=== PATIENT | male | born 1975 | race Caucasian/White ===

== ENCOUNTER 2018-03-31 13:19 | Emergency (ER) | payer SELFPAY ==
[2018-03-31 13:34] VITALS: BP 137/80
--- NOTE | 2018-03-31 13:49 | ED Physician Documentation ---
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 History: history of chronic pain: (sig lesser), back pain Duration: continues in ED, worse Recent Injury: No Context: lifting Where: work Other Injuries: back Severity: moderate Quality: burning, sharp, similar- prior back pain (butworse) Associated Symptoms: denies: fever, chills, sweating, constipation, incontinence , nausea, vomiting Worsened By:: other (lifting and flexing) - ROS CONST: no problems CVS/RESP: none EYES/ENT: none MS/SKIN/LYMPH: none Neuro/Psych: none GI/: denies: abdominal pain - PAST HX Past History: back pain (intermittent but freq recurrent-pt has had no studies done-disc w/ him he prefers not since he has no insurance- bowels and kidneys are as usual) Surgeries/Procedures: none Allergies/Adverse Reactions: Allergies Allergy/AdvReac Type Severity Reaction Status Date / Time No Known Allergies Allergy Verified 03/31/18 13:34 Home Medications: Ambulatory Orders Medication Instructions Recorded NK [NK] 03/31/18 - SOCIAL HX Smoking History: less than 1 pack/day Alcohol Use: none Drug Use: none - FAMILY HX Family History: no significant history - VITAL SIGNS Vital Signs: Vital Signs Temp Pulse Resp BP Pulse Ox 98.6 F 70 16 137/80 98 03/31/18 13:29 03/31/18 13:29 03/31/18 13:29 03/31/18 13:29 03/31/18 13:29 - REVIEWED ASSESSMENTS Nursing Assessment Reviewed: Yes Vitals Reviewed: Yes Low Back Pain/Injury - Physical Exam General Appearance: moderate distress EENT: eye inspection normal Neck: non-tender Resp/CVS: chest non-tender, breath sounds nml, heart sounds nml, reg. rate & rhythm Back: CVA tenderness (bilat lumbar), muscle spasm (lumbarspasm and tenderness bilat rosario on lt). No: vertebral point-tendernes Straight Leg Raising: Negative Right, Positive Left (while seated raised legs- pt noted to lean back sig when raised lt leg less on rt-then on slr supine same flex response as when seated) Neuro/Psych: oriented x3, motor nml, sensation nml Skin: warm/dry, normal color. No: cyanosis, diaphoresis, jaundice Extremities: non-tender, normal range of motion, no evidence of injury, no edema Discharge Clincal Impression: acute exaberation chronic low back pain Referrals: Primary Doctor,No [Primary Care Provider] - 2 Days Comments: meds as attached plus IBU 600tid-rec rtw as scott 2-4 days Condition: Good Disposition: 01 HOME, SELF-CARE Decision to Admit: NO Decision Time: 14:13
== END 2018-03-31 13:52 | disposition home or self-care (01) ==
LOC: ED 13:19
DX: M54.5 Low back pain (principal)
CPT/HCPCS: 99282